=== PATIENT | female | born 1965 | race Caucasian/White ===

== ENCOUNTER 2017-10-21 05:55 | Emergency (ER) | payer OTHER, SELFPAY ==
[2017-10-21 05:56] VITALS: BP 161/120; PULSE 97; RESP 18; TEMP 36.8; O2SAT 98; BMI 40.1
[2017-10-21 06:16] VITALS: BP 122/71
[2017-10-21] MEDS: Loperamide 2 MG Capsule 4 MG PO (06:16)
[2017-10-21] MEDS: Dicyclomine 10 MG Capsule 20 MG PO (06:16)
--- NOTE | 2017-10-21 06:16 | ED.DCSUM_ITS ---
- ER Visit Summary Date of Service: 10/21/17 Chief Complaint: Burning lower abdominal pain with diarrhea and rectal bleeding History of Present Illness: The patient is a 52 F who presents with lower abdominal burning pain with diarrhea and rectal bleeding. Pain started several hours prior to presentation. She had several episodes of diarrhea without mucus. She now has blood. She has not eaten anything that tasted unusual. She has not been on antibiotics last month. There is no history of diverticulosis. There is no history of inflammatory bowel disorder. She is presently on no medication. She does report lightheadedness with standing. She denies dysuria, frequency, urgency or hematuria. Surgical history remarkable for C5-6 discectomy. Physical Examination: Patient's vital signs are remarkable and elevated blood pressure. She is not tachycardic or febrile. HEENT is grossly unremarkable. Lungs are clear to auscultation. Heart is regular. Abdomen is soft with bilateral lower quadrant abdominal pain. Bowel sounds are slightly increased. No inguinal lymphadenopathy. Rectal exam reveals external hemorrhoids which appear inflamed. On rectal exam minimal amount of blood noted. She did use the restroom which revealed blood. No stool was noted on rectal exam. Neuro exam is nonfocal. Test Results: Anoscopy was performed to determine if the bleeding was secondary to hemorrhoids versus lower GI bleed. Anoscopy was performed. There was no blood noted above the scope. The rectal mucosa appeared normal. There was evidence of more than one hemorrhoid that recently bled. There is no active bleeding. Hemorrhoids are not thrombosed. Emergency Department Course and Treatment: Since patient has bright red blood secondary to hemorrhoids no further testing is needed. She was treated with Imodium for her diarrhea and Bentyl for her pain. Treatment Plan: Imodium for diarrhea and prescription for Bentyl. Disposition: Discharged to home with appropriate home-going instructions Impression: 1. Diarrhea 2. Hematochezia secondary to external hemorrhoids This note was generated with [employer] dictation software. It may contain incorrect words, spelling, and punctuation that were not noted in review of the chart prior to signing ED Disposition - Plan for ED Patient: Disposition: Home or Assisted Living Chief Complaint: GI Bleed Instructions: ED Hematochezia Stable, ED Hemorrhoids Prescriptions: Dicyclomine HCl [Bentyl] 20 mg PO ACHS #10 cap Referrals: Malys,Tiffany, DO [Primary Care Provider] - 3-5 Days if not improving
== END 2017-10-21 06:21 | disposition home or self-care (01) ==
PROVIDERS: Emergency Provider Emergency Medicine; Family Provider Family Medicine; PCP Family Medicine
DX: R19.7 Diarrhea, unspecified (principal); K64.4 Residual hemorrhoidal skin tags; K92.1 Melena; R10.32 Left lower quadrant pain; R10.31 Right lower quadrant pain; R03.0 Elevated blood-pressure reading, without diagnosis of hypertension; E66.9 Obesity, unspecified; Z79.899 Other long term (current) drug therapy
CPT/HCPCS: 46600; 99283

== ENCOUNTER 2017-11-25 08:12 | Emergency (ER) | payer OTHER, SELFPAY ==
[2017-11-25] VITALS (10 sets, daily range): BP systolic 105–162; BP diastolic 58–96; PULSE 55–69; RESP 15–20; TEMP 36.6; O2SAT 97–100; BMI 34.9
--- NOTE | 2017-11-25 08:21 | EKG12_ITS ---
Test Reason : CP Blood Pressure : / mmHG Vent. Rate : 061 BPM Atrial Rate : 061 BPM P-R Int : 138 ms QRS Dur : 076 ms QT Int : 420 ms P-R-T Axes : 040 014 047 degrees QTc Int : 422 ms Normal sinus rhythm Normal ECG Confirmed by MONIKA BULLARD, KATHLEEN ([id number]), metropolitan editor RUI BORGES ([id number]) on 11/28/2017 1:23:06 PM Referred By: OXANA Confirmed By:KATHLEEN FRANK MD
--- NOTE | 2017-11-25 08:25 | ED.DCSUM_ITS ---
- ER Visit Summary Date of Service: 11/25/17 Chief Complaint: Chest pain History of Present Illness: The patient is a 52 F who presents with chest pain that began today while at work. Patient states the pain began approximately 3 hours ago. Patient states it feels like it is indigestion. Patient states she has been taking Tums with no relief. Patient denies any radiation of the pain. Patient states she did have some sweats today but also states she is going through menopause and occasionally gets sweats. Patient denies any nausea or vomiting. Patient denies any shortness of breath or palpitations. Patient denies any cardiac risk factors. Patient denies any PE risk factors. Physical Examination: Vital signs are stable except for mildly elevated blood pressure 162/96. Patient is afebrile. Patient is in no acute distress. Oral mucosa is pink and moist. Neck is supple. There is no JVD noted. Heart was regular rate and rhythm. Lungs are clear and equal bilateral. There is good respiratory effort noted. Abdomen is soft. Bowel sounds are normal. There is no tenderness noted. Cranial nerves II through XII are intact. There are no focal motor or sensory deficits noted. The remaining physical exam is within normal limits. Test Results: EKG showed normal sinus rhythm with a rate of 61. There are no acute ST or T-wave changes noted. CBC and basic metabolic profile were obtained. Potassium was slightly elevated at 5.5. The specimen was slightly hemolyzed. Troponin was normal. Emergency Department Course and Treatment: Patient was given aspirin and sublingual nitroglycerin here. Patient felt better on reevaluation. Patient has a FRANCI score of 1. Patient has a HEART score of 2. Patient was advised that this is low risk for acute cardiac event. Patient was instructed to follow -up with her primary care physician in 3-5 days. Patient understood and was agreeable with the plan. All questions were answered. Disposition: Discharge home Impression: Chest pain This note was generated with [employer] dictation software. It may contain incorrect words, spelling, and punctuation that were not noted in review of the chart prior to signing ED Disposition - Plan for ED Patient: Disposition: Home or Assisted Living Chief Complaint: Chest Pain Diagnosis: Chest pain Instructions: ED Chest Pain Atypical Unkn Cause Referrals: Tiffany Waite DO [Primary Care Provider] -
--- NOTE | 2017-11-25 08:27 | RAD_ITS ---
STUDY: X-RAY CHEST REASON FOR EXAM: Female, 52 years old. Chest pain. TECHNIQUE: Single AP portable view of the chest. COMPARISON: None. FINDINGS: EKG electrodes are seen. The lungs are clear and expanded. There is no demonstrated pleural abnormality. Normal size heart. Normal mediastinum and viktoriya. Normal visualized pulmonary arteries. Normal visualized aortic arch and descending thoracic aorta. Normal visualized thoracic spine. Prior fusion in the lower cervical spine. There is no demonstrated abnormality of the visualized soft tissue structures of the upper abdomen. RAD/Chest 1 View (Portable) IMPRESSION: No acute abnormality is seen. Electronically Signed: Ernesto Avalos MD at 8:43 EDT Tel [phone], Service support ,
[2017-11-25 08:55] LABS: Absolute Neutrophil Count 5.8 X10^3/uL (2.0-7.7); Basophil# 0.05 X10^3/uL; Basophil% 0.5 % (0-1); Eosinophil# 0.11 X10^3/uL; Eosinophils% 1.2 % (0-5); Hematocrit 44.3 % (37-47); Lymphocyte % 27.3 % (19-41); Mean Corp Hgb Conc 33.9 g/gl (32-36); Mean Corpuscular Hgb 29.9 pg (27.0-32.0); Mean Corpuscular Volume 88.2 fL (81-99); Mean Platelet Vol. 10.9 fl (6.2-12.0); Monocyte# 0.93 X10^3/uL; Monocyte% 9.8 % (0-10); Neutrophil # 5.81 X10^3/uL (2.7-7.7); Neutrophil % 61.1 % (47-70); POSITIVE COUNT NO; POSITIVE DIFFERENTIAL NO; POSITIVE MORPHOLOGY NO; Platelet Count 216 K/mm3 (150-450); RBC Distribution Width SD 45.1 fl (35.1-43.9); Red Blood Count 5.02 M/mm3 (4.2-5.4); White Blood Count 9.5 K/mm3 (4.4-11.0)
[2017-11-25 09:07] LABS: Anion Gap 9 (5-15); BUN 16 mg/dL (7-18); BUN/Creat Ratio 20.9 RATIO (10-20); Calcium,Total 9.7 mg/dL (8.5-10.1); Chloride 106 mmol/L (98-107); Creatinine, Serum 0.77 mg/dL (0.55-1.02); EST Glomerular Filtration Rate 84 mL/min (>60); Est Glom Filt Rate - Afr Amer 101 mL/min (>60); Estimated Creatinine Clearance 72.96 ml/min; Glucose 84 mg/dL (74-106); Potassium 5.5 mmol/L (3.5-5.1); Sodium Level 136 mmol/L (136-145)
[2017-11-25] MEDS: Aspirin 81 MG TAB.CHEW 324 MG PO (09:11)
--- NOTE | 2017-11-25 10:29 | EKG12_ITS ---
Test Reason : REPEAT Blood Pressure : / mmHG Vent. Rate : 055 BPM Atrial Rate : 055 BPM P-R Int : 144 ms QRS Dur : 076 ms QT Int : 464 ms P-R-T Axes : 034 017 038 degrees QTc Int : 443 ms Sinus bradycardia Low voltage QRS Nonspecific T wave abnormality Abnormal ECG Confirmed by MONIKA BULLARD, KATHLEEN ([id number]), editor index RUI BORGES ([id number]) on 11/28/2017 1:23:22 PM Referred By: SHERIF Confirmed By:KATHLEEN FRANK MD
[2017-11-25] MEDS: Ketorolac 30 MG/ML Syringe IV (11:47)
== END 2017-11-25 12:06 | disposition home or self-care (01) ==
PROVIDERS: Emergency Provider Emergency Medicine; Family Provider Family Medicine; PCP Family Medicine
DX: R07.9 Chest pain, unspecified (principal); E87.5 Hyperkalemia; R03.0 Elevated blood-pressure reading, without diagnosis of hypertension; K21.9 Gastro-esophageal reflux disease without esophagitis; N95.1 Menopausal and female climacteric states; Z79.899 Other long term (current) drug therapy; Z85.828 Personal history of other malignant neoplasm of skin
CPT/HCPCS: 36415; 71045; 80048; 84484; 85025; 93005; 96374; 99285; A4216

== ENCOUNTER → 2017-11-27 08:12 | Outpatient (CLI) | payer OTHER, SELFPAY ==
--- NOTE | 2017-11-27 08:17 | STE_ITS ---
Version 2 Reason For Study: Chest Pain Stress Results Protocol: Peña Protocol Maximum Predicted HR: 167 bpm Target HR: 142 bpm% Max imum Predicted HR: 93 % DurationHeart Rate Stage (mm:ss) (bpm) BPCom ment Baseline 76 132/74 No Chest Pain Peña Protocol Stage I 3:00 10 9 156/74No Chest Pain Peña Protocol Stage II 3:00 13 3 160/70No Chest Pain; Mild Dyspnea Peña Protocol Stage III 2:00 15 5 170/68No Chest Pain; Mild Dyspnea Recovery 85 128/70 No Chest Pain Stress Duration: 8:00 mm:ss Maximum Stress HR: 155 bpmM ETS: 10 Baseline Echocardiogram Findings Stress Echo Wall motion Data Resting WMIntermediate WMStress WM Resting Wall Motion Wall Motion Stress No regional wall motion No regional wall motion abnormalities noted. abnormalities noted. Ejection Fraction 55 %. Ejection Fraction 65 %. Stress Results Normal blood pressure response to exercise. Exercise was stopped due to fatigue. EKG Data Baseline ECG demonstrates normal sinus rhythm with a rate of 64 beats per minute. Normal intervals are noted. The resting blood pressure was 132/74. The patient exercised according to the regular Peña protocol for a total duration of 8 min. The maximum heart rate attained was 157 beats per minute. This was 94% of maximum predicted heart rate. The patient exercised into stage 3 of the Peña protocol. During stress, there were no ST or T wave changes noted to suggest ischemia. At peak exercise, upsloping ST changes only were noted, which did not meet the criteria for ischemia. The peak blood pressure was 170/68. No arrhythmias noted. No clinical angina was noted. Interpretation Summary Normal resting LV systolic function. Nonstenotic valves. With stress, the LV size decreased and all segments augmented normally. The LVEF increased from 55% to 65%. Negative for ischemia at 94% of MPHR and at 10.1 METS. Normal stress echo at a high workload. No angina noted Ordering Physician: Tiffany Waite Referring Physician: Chano Aviles MD Performed By: Nadine Ruiz ELICEO
== END ==
PROVIDERS: Family Provider Family Medicine; PCP Family Medicine; Visit Provider Family Medicine
DX: R07.9 Chest pain, unspecified (principal)
CPT/HCPCS: 93017; 93350

== ENCOUNTER → 2018-12-17 08:06 | Outpatient (CLI) | payer OTHER, SELFPAY ==
--- NOTE | 2018-12-17 08:06 | BI_ITS ---
MAMMOGRAPHY - BILATERAL SCREENING REASON FOR EXAM: Female, 53 years old. Routine annual screening examination. PERTINENT HISTORY: Non-contributory. TECHNIQUE: Digital bilateral breast syeda (3D mammographic acquisition) in the CC and MLO projections. 2-D mediolateral oblique (MLO) and craniocaudad (CC) views of both breasts were obtained. CAD: Full Field Digital Mammography with Computer Added Detection was performed. COMPARISON: Comparison is made with prior examination dated June 27, 2016 and July 12, 2014. FINDINGS: Breast Composition: There are scattered areas of fibroglandular density. There are no dominant masses or suspicious calcifications. Stable appearance of the small bilateral axillary lymph nodes. No other significant abnormalities are identified. There has been no significant change since the prior study. BI/SCREEN MAMM (CAD) W/SYEDA BILAT IMPRESSION: Stable bilateral screening mammogram. Yearly follow-up mammogram recommended. (A) ASSESSMENT CATEGORY: BIRADS Category 2: Benign. A letter regarding these results will be sent to the patient by the facility within 30 days. Approximately 10% of breast cancers are not detected by mammography. A normal mammogram should not delay biopsy of a clinically suspicious abnormality. [id number] Electronically Signed: Ernesto Avalos, at 9:24 EDT , Service support ,
== END ==
PROVIDERS: Family Provider Family Medicine; PCP Family Medicine; Referring Provider Obstetrics & Gynecology; Visit Provider Obstetrics & Gynecology
DX: Z12.31 Encounter for screening mammogram for malignant neoplasm of breast (principal)
CPT/HCPCS: 77063; 77067

== ENCOUNTER → 2018-12-28 17:00 | Outpatient (CLI) | payer OTHER, SELFPAY ==
[2018-12-31 14:18] LABS: HPV Reflexed? NOT INDICATED
== END ==
LOC: LABSPEC 17:00 → LAB 12-29 10:36
PROVIDERS: Family Provider Family Medicine; PCP Family Medicine; Referring Provider Obstetrics & Gynecology; Visit Provider Obstetrics & Gynecology
DX: Z12.4 Encounter for screening for malignant neoplasm of cervix (principal); Z97.5 Presence of (intrauterine) contraceptive device
CPT/HCPCS: 87624; 88175; G0145

== ENCOUNTER 2019-03-31 10:09 | Day surgery (SDC) | payer OTHER, SELFPAY ==
[2019-03-31 10:27] VITALS: BP 126/58; PULSE 74; RESP 15; TEMP 36.6; O2SAT 97; BMI 38.5
[2019-03-31] MEDS: Lactated Ringers 1,000 ML 100 ML IV (10:42)
--- NOTE | 2019-03-31 10:51 | HP.PCM_ITS ---
History of Present Illness Date of Admission: 03/31/19 The patient is a 53 year old F here for screening colonoscopy. The patient reports that she did have a colonoscopy back in her 30s. At that time he was induced that she had irritable bowel syndrome. She has had no polyps. She has no family history of colon cancer. She denies any abdominal pain or blood in her stool. Past Medical/Surgical History - Planned Operation Planned Operative Procedure/s: COLONOSCOPY Date of Operative Procedure: 03/31/19 Permit Signed: Yes S.O.S: No Is This Patient Having a Total Joint: No - Previous Hospitalizations/Surgeries HX Hospitalizations: No HX of Surgeries: GALLBLADDER. CYSTO. BASAL CELL ON NECK. C5-C6 NECK REPAIR 2015 Any Problems With Anesthesia: No You/Your Family Experience Fever (Hyperthermia) With Anes: No Cholinesterase deficiency: No - Cardiovascular Hx Chest Pain within Last 2 months: No Hx of Irregular Heartbeat and/or Afib: No Hx Heart Attack: No Hx Congestive Heart Failure: No Hx Rheumatic Fever: No Hx Hypertension: No Hx Internal Defibrillator: No Hx Pacemaker: No Hx Cardiac Catheterization: Yes - [facility] 2003 What facility was last heart cath performed: [facility] Date of last Heart Cath: 2003 Hx Cardiac Surgery/Stents/Etc.: No Hx Stress Test: Yes - STRESS TEST 11/2017 HX Edema: No Hx Pain in Legs when Walking/Leg Cramps: No - Respiratory Chronic Cough: No HX of Shortness of Breath: No Hoarseness: No Hx Chronic Obstructive Pulmonary Disease (COPD): No Hx Asthma: Yes - EPISODE X1-HOSPITALIZED, NOTHING SINCE Hx Emphysema: No Hx Sleep Apnea: No Hx Oxygen Use at Home: No Hx Respiratory Tract Infection/Cold (presently): No Do You Snore Loudly (louder than talking or can be heard): No Do You Often Feel Tired/ Fatigued/ Sleepy Dring Daytime?: No Has Anyone Observed You Stop Breathing During Sleep?: No Result (for STOP score): Negative Hx Smoking: No Smoking Status: Never smoker - Gastrointestinal Hx Gastroesophageal Reflux: Yes Controlled With Meds: Yes - ON MED PRN Hx Gastrointestinal Disorders: No Hx Gastrointestinal Bleed: No Hx Ulcer: No Hx Hiatal Hernia: No Difficulty Chewing/Swallowing: No Recent Onset of Swallowing Problems: No Special diet followed at home: No Hx Unplanned Weight Loss of 20#: No HX Unplanned Weight Gain of 20#: No - Neurological Hx Seizures: No HX Syncope/Blackout Spells/Unconsciousness: No Hx CVA/Stroke: No Hx Transient Ischemic Attacks (TIA): No Hx Multiple Sclerosis: No Hx Parkinson's Disease: No Hx Head/Neck Injury: Yes Hx Headaches: Yes Hx Back Injury/Pain: No Recent Onset of Speech Difficulty: No Restless Legs: No Does patient have nerve stimulator: No - Blood Disorder Hx Leukemia: No Bleeding Tendencies: No Hx Deep Vein Thrombosis: No Hx High Cholesterol: No Blood Transmitted Disease: No Hx Hepatitis: No Hx Cirrhosis: No Hx Anemia: No Hx Blood Disorders: No - Reproduction : No Is Patient Lactating: No Hx Hysterectomy: No Hx Tubal Ligation: No Are You Post Menopause: Yes - Genitourinary Hx Renal Disease: Yes - KIDNEY STONES Hx Dialysis: No - Musculoskeletal Hx Arthritis: No Hx Rheumatoid Arthritis: No Hx Gout: No Recent Onset of an Orthopedic Problem: No - Endocrine Hx Diabetes: No Thyroid Disease: No Hx Steroid Therapy: No - Psycho/Social Hx Substance Use: No Hx Alcohol Use: No Hx Anxiety: No Hx Depression: No Mental Illness: No Hx Dementia: No - Miscellaneous Hx Cancer: Yes - BASAL CELL ON NECK Recent Exposure to Contagious Disease: No Active MRSA: No Hx of C-Diff: No Any Loose Teeth: No Allergies Penicillins Allergy (Verified 03/31/19 10:20) Unknown - Discharge Is Pt Admitted From a Halfway, or a Half-Way: No Who Could Help: After D/C, Where Do you Plan to Go: Return Home - Physical Exam Vitals/I&O's: Vital Signs Temp Pulse Resp BP Pulse Ox 97.8 F 74 15 126/58 H 97 03/31/19 10:27 03/31/19 10:27 03/31/19 10:27 03/31/19 10:27 03/31/19 10:27 Oxygen Delivery Method Room Air Weight: 197 lb 8.547 oz Body Mass Index (BMI) 38.5 General: Alert, Oriented x3 Lungs: Normal air movement Cardiovascular: Regular rate, Regular Rhythm Abdomen: Soft, Non Tender, Non-Distended Current Medications Lactated Ringer's () 1,000 mls @ 100 mls/hr IV .Q10H FARIDA Last Admin: 03/31/19 10:42 Dose: 100 mls/hr Documented by: Assessment/Plan 53-year-old female for screening colon cancer I explained endoscopy in detail to the patient. I explained the risks including but not limited to stroke or heart attack with anesthesia, perforation of the GI tract, bleeding, infection. I explained that any of these could necessitate further emergency surgery. The patient understands and all questions were answered sufficiently. The patient wishes to proceed with procedure. Gautam Barkley MD Pager: [facility] [address] [place] [address] [address] [place] [address] Office: Surgery Risks - Colonoscopy Risks Include but are not Limited To: Risks include but are not limited to: Bleeding, perforation requiring further surgery, inability to complete colonoscopy requiring barium enema.
--- NOTE | 2019-03-31 11:38 | OP.COLON_ITS ---
Patient Name: Eva Mulligan Procedure Date: 03/31/2019 11:06 AM Date of : 1965 Age: 53 Procedure: Colonoscopy Indications: Screening for colorectal malignant neoplasm Providers: Gautam Barkley MD Referring MD: Gautam Barklye MD Medicines: Monitored Anesthesia Care Patient Profile: This is a 53 year old female. Refer to note in patient chart for documentation of history and physical. Last Colonoscopy: more than 10 years ago. Complications: No immediate complications. Procedure: Pre-Anesthesia Assessment: - Prior to the procedure, a History and Physical was performed, and patient medications and allergies were reviewed. The patient's tolerance of previous anesthesia was also reviewed. The risks and benefits of the procedure and the sedation options and risks were discussed with the patient. All questions were answered, and informed consent was obtained. Prior Anticoagulants: The patient has taken no previous anticoagulant or antiplatelet agents. After reviewing the risks and benefits, the patient was deemed in satisfactory condition to undergo the procedure. After I obtained informed consent, the scope was passed under direct vision. Throughout the procedure, the patient's blood pressure, pulse, and oxygen saturations were monitored continuously. The Colonoscope was introduced through the anus and advanced to the cecum, identified by appendiceal orifice and ileocecal valve. The colonoscopy was performed without difficulty. The patient tolerated the procedure well. The quality of the bowel preparation was good. Scope In: 11:23:24 AM Scope Withdrawal Time 0 hours 6 minutes 18 seconds Scope Out: 11:35:00 AM Total Procedure Duration Time 0 hours 11 minutes 36 seconds Findings: The entire examined colon appeared normal on direct and retroflexion views. Impression: - The entire examined colon is normal on direct and retroflexion views. - No specimens collected. Recommendation: - Discharge patient to home. - Resume previous diet. - Continue present medications. - Repeat colonoscopy in 10 years for screening purposes. Procedure Code(s): --- Professional --- 88355, PT, Colonoscopy, flexible; diagnostic, including collection of specimen(s) by brushing or washing, when performed (separate procedure) Diagnosis Code(s): --- Professional --- Z12.11, Encounter for screening for malignant neoplasm of colon CPT copyright 2017 [employer]. All rights reserved. The codes documented in this report are preliminary and upon vb net programmer review may be revised to meet current compliance requirements. Gautam Barkley MD 03/31/2019 11:37:34 AM This report has been signed electronically. Number of Addenda: 0 Note Initiated On: 03/31/2019 11:06 AM
[2019-03-31 11:43] VITALS: BP 126/58; BP 98/71; PULSE 62; RESP 16; TEMP 36.5; O2SAT 98
[2019-03-31 11:45] VITALS: BP 110/64; BP 126/58; PULSE 57; RESP 16; O2SAT 93
[2019-03-31 11:50] VITALS: BP 125/68; BP 126/58; PULSE 56; RESP 16; O2SAT 93
[2019-03-31 11:55] VITALS: BP 110/69; BP 126/58; PULSE 57; RESP 16; TEMP 36.2; O2SAT 100
[2019-03-31 12:05] VITALS: BP 126/58
== END 2019-03-31 12:27 | disposition home or self-care (01) ==
LOC: EN 10:10 → AC 10:12
PROVIDERS: Family Provider Family Medicine; PCP Family Medicine; Referring Provider Surgery; Visit Provider Surgery
PROC: 0DJD8ZZ Inspection of Lower Intestinal Tract, Via Natural or Artificial Opening Endoscopic (ICD-10-PCS; CPT 45378; principal; 2019-03-31 11:10)
DX: Z12.11 Encounter for screening for malignant neoplasm of colon (principal); K21.9 Gastro-esophageal reflux disease without esophagitis; J45.909 Unspecified asthma, uncomplicated; Z78.0 Asymptomatic menopausal state; Z88.0 Allergy status to penicillin; Z79.899 Other long term (current) drug therapy; Z87.442 Personal history of urinary calculi; Z85.828 Personal history of other malignant neoplasm of skin
CPT/HCPCS: 45378; J7120

== ENCOUNTER 2019-07-04 21:48 | Emergency (ER) | payer OTHER, SELFPAY ==
[2019-07-04 21:48] VITALS: BP 119/78; PULSE 74; RESP 16; TEMP 36.7; O2SAT 98; BMI 40.3
--- NOTE | 2019-07-04 21:54 | RAD_ITS ---
STUDY: X-RAY LEFT FOOT, TOE REASON FOR EXAM: Female, 53 years old. PATIENT FELL TONIGHT. PAIN IN LEFT GREAT TOE MOSTLY WITH SCRAPES ACROSS OTHER TOES. TECHNIQUE: 3 view(s) of the toe were obtained. COMPARISON: None. FINDINGS: Minimal irregularity at the distal aspect of the great toe may represent a subtle nondisplaced fracture. Mild degenerative changes at the left first MTP joint. No significant soft tissue swelling. IMPRESSION: Minimal irregularity at the distal aspect of the great toe may represent a subtle nondisplaced fracture. Electronically Signed: Brad Mayo, at 23:32 EST Tel , Service support , RAD/Toe(s) Min 2 Views
--- NOTE | 2019-07-04 22:04 | RAD_ITS ---
STUDY: X-RAY - RIGHT ANKLE REASON FOR EXAM: Female, 53 years old. PATIENT FELL TONIGHT. PAIN IN RIGHT ANKLE. TECHNIQUE: 3 view(s) of the ankle. COMPARISON: None. FINDINGS: No acute fracture, dislocation or osseous destruction. No significant joint space narrowing. No significant productive changes. Diffuse soft tissue swelling. IMPRESSION: No acute fracture or dislocation right ankle. Electronically Signed: Brad Mayo, at 23:27 EST Tel , Service support , RAD/Ankle min 3 Views
[2019-07-04 22:22] VITALS: RESP 16
--- NOTE | 2019-07-04 22:45 | ED.VIS.GEN ---
History of Present Illness Chief Complaint: Fall Informant: Patient Onset: Today Current Severity: Moderate Maximum Severity: Moderate Narrative: Patient presents after fall. Earlier today she was leaving a friend's house and turned to close the gate. She lost her balance and fell down approximately 6 concrete steps. Primary complaint is pain to the right ankle into the toes of her left foot. She already took Aleve prior to arrival. - Past Medical History (1) GERD (gastroesophageal reflux disease) Status: Chronic (2) Kidney stone Status: Chronic (3) Hx of cholecystectomy Status: Chronic Past Medical History - Allergies and Home Meds Allergies/Adverse Reactions: Allergies Penicillins Allergy (Verified 07/04/19 21:52) Unknown Primary Care Physician: Tiffany Waite DO [Primary Care Provider] - 1 Week if not improving Prior records reviewed: Yes Surgical History: noncontributory Smoking Status: Never smoker Review of Systems General: Denies: Chills, Fever Eyes: Denies: Visual changes - bilaterally ENT: Denies: Bilateral ear pain Cardiovascular: Denies: Chest pain Respiratory: Denies: Dyspnea, Cough Gastrointestinal: Denies: Abdominal pain, Nausea, Vomiting Musculoskeletal: Reports: Swelling, Extremity Pain Skin: Reports: Abrasions Neurological: Denies: Headache Allergy: Denies: Uticaria Physical Exam Vital Signs/Narrative: Vital Signs Temp Pulse Resp BP Pulse Ox 07/04/19 22:22 16 07/04/19 21:48 98.1 F 74 16 119/78 98 Inital Vital Signs reviewed: Yes General: Well nourished, Well developed Head: Normocephalic ENT: Moist mucous membranes Neck: Supple Cardiovascular: Regular rate, Regular rhythm Respiratory: No distress, CTA bilaterally Abdomen: Soft, Nontender Back: Nontender Extremities: - - Tender to palpation around the right ankle, worse along the lateral malleolus. Abrasion noted over the anterior ankle. No tenderness over the midfoot or toes on the right. Left lower extremity reveals abrasions to her toes with tenderness, worse in the great toe. No significant ecchymosis. No tenderness over the heel or midfoot. Skin: - - Abrasions as above. She also has a large area of ecchymosis to the right volar forearm without bony tenderness. Neurological: Alert, Oriented x3, Normal Strength, Normal Sensation Psychological: Normal affect Diagnostic/Tx/Re-eval Impressions Toe X-Ray 07/04/19 21:54 IMPRESSION: Minimal irregularity at the distal aspect of the great toe may represent a subtle nondisplaced fracture. Ankle X-Ray 07/04/19 22:04 IMPRESSION: No acute fracture or dislocation right ankle. 07/04/19 21:54 Xray Toe [Toe(s) Min 2 Views] [RAD] Stat 07/04/19 22:04 XRAY Ankle [Ankle min 3 Views] [RAD] Stat - Medical Decision Making Patient taken Aleve prior to arrival. Patient was seen and evaluated prior to the return to the official x-ray read. My review of imaging I do not appreciate any fractures. Radiologist states there may be a subtle nondisplaced fracture to the distal left great toe, however this does not change management facilitator. Patient will continue Aleve at home as needed. Ashish wraps are applied. ED Disposition - Plan for ED Patient: Disposition: Home or Assisted Living Diagnosis: Ankle sprain, Foot contusion Instructions: Sprain, Ankle, with X-Ray, CONTUSION, Foot Referrals: Tiffany Waite DO [Primary Care Provider] - 1 Week if not improving
[2019-07-04 23:17] VITALS: RESP 14
== END 2019-07-04 23:17 | disposition home or self-care (01) ==
LOC: ED 22:59
PROVIDERS: Emergency Provider Emergency Medicine; PCP Family Medicine
DX: S93.401A Sprain of unspecified ligament of right ankle, initial encounter (principal); S90.412A Abrasion, left great toe, initial encounter; S90.415A Abrasion, left lesser toe(s), initial encounter; W10.8XXA Fall (on) (from) other stairs and steps, initial encounter; Y93.89 Activity, other specified; Y92.019 Unspecified place in single-family (private) house as the place of occurrence of the external cause; K21.9 Gastro-esophageal reflux disease without esophagitis
CPT/HCPCS: 73610; 73660; 99282

== ENCOUNTER → 2019-07-26 15:32 | Outpatient (CLI) | payer OTHER, SELFPAY ==
[2019-07-04 21:48] VITALS: BMI 40.3
--- NOTE | 2019-07-26 15:36 | RAD_ITS ---
STUDY: X-RAY - RIGHT FOOT CLINICAL: Female, 53 years old. fell 3 weeks ago, pain 5th digit and along the lateral side of foot TECHNIQUE: 3 view(s) of the foot. COMPARISON: None. FINDINGS: Normal talus, calcaneus, and tarsal bones. Normal visualized subtalar, talonavicular, calcaneocuboid, tarsal and tarsometatarsal articulations. Normal metatarsi. There is minimal degenerative arthrosis of the metatarsophalangeal joint of the hallux . Normal tibial and fibular sesamoid bones. Normal interphalangeal joint of the great toe. Normal phalanges of the great toe. Mild irregularity of the medial aspect of the fifth metatarsophalangeal joint of the base of the proximal phalanx medially which could represent sequela of an old avulsion injury. Otherwise unremarkable second through fifth metatarsophalangeal joints. Normal interphalangeal joints and phalanges of the lesser toes. There is soft tissue swelling along the dorsum of the foot at the metatarsophalangeal joints and best seen on lateral projection. RAD/Foot min 3 Views IMPRESSION: Cannot exclude avulsion injury or subtle fracture involving the medial aspect of the base of the proximal phalanx of the fifth toe Metatarsophalangeal joint, correlation with physical exam recommended. Associated soft tissue swelling seen. Electronically Signed: Kirsten Pritchett MD at 4:20 EDT , Service support ,
== END ==
PROVIDERS: PCP Family Medicine; Referring Provider Family Medicine; Visit Provider Family Medicine
DX: S99.921A Unspecified injury of right foot, initial encounter (principal); W19.XXXA Unspecified fall, initial encounter
CPT/HCPCS: 73630

== ENCOUNTER → 2019-08-06 06:34 | Outpatient (CLI) | payer OTHER, SELFPAY ==
--- NOTE | 2019-08-06 06:43 | MRI_ITS ---
STUDY: MRI RIGHT FOOT REASON FOR EXAM: Right foot and ankle pain after a fall approximately 4 weeks ago, evaluate for fifth metatarsal fracture. TECHNIQUE: Standardized fat and water weighted pulse sequences were obtained in all 3 orthogonal planes. COMPARISON: Radiographs 07/26/2019. FINDINGS: Normal talonavicular articulation. There is a mild bone contusion of the lateral aspect of the navicular (inversion recovery sagittal image 14). Normal calcaneocuboid articulation. There is mild bone contusion of the proximal cuboid (inversion recovery sagittal images 15, 16). Normal navicular-cuneiform articulations. Normal intercuneiform articulations. Normal first tarsometatarsal articulation. There is mild interstitial edema in Lisfranc ligament (T2 series 3 image 12) suggestive of a low-grade sprain. Normal second and third tarsometatarsal articulations. There is very mild subchondral bone edema adjacent to the third tarsometatarsal joint (inversion recovery sagittal image 16). Normal cuboid fourth and cuboid fifth tarsometatarsal articulation. There is a mild bone contusion of the base of the fourth metatarsal (inversion recovery sagittal image 18). There is a bone contusion of the head and diaphysis of the fifth metatarsal (inversion recovery sagittal images 22-24). There is a mild bone contusion of the base of the fifth proximal phalanx (inversion recovery sagittal image 24) without demonstrated macrofracture. There is calcification in the medial joint capsule of the fifth proximal interphalangeal joint (T2 series 3 image 13). Otherwise, unremarkable phalanges. There is mild arthrosis with mild chondral thinning of the first metatarsophalangeal joint (T1 sagittal image 5). There is patchy bone edema in the bipartite tibial sesamoid (inversion recovery sagittal image 5) suggestive of sesamoiditis. There is atrophy with partial fat replacement of the abductor digiti minimi muscle (T1 sagittal images 21, 22). There is edema in the dorsal and lateral subcutis adipose space. MRI/Lower Ext/No Jt/w/o IMPRESSION: Bone contusion of the fifth metatarsal. Mild bone contusion of the base of the fifth proximal phalanx and calcification in the medial capsule of the fifth proximal interphalangeal joint. Mild bone contusions of the lateral navicular, proximal cuboid, adjacent to the third tarsometatarsal joint, and fourth metatarsal base. Low-grade sprain of Lisfranc ligament. Mild arthrosis of the first metatarsophalangeal joint. Tibial sesamoiditis. Atrophy of the abductor digiti minimi muscle. Electronically Signed: Greg Moody MD at 9:28 EDT Tel , Service support ,
--- NOTE | 2019-08-06 06:43 | MRI_ITS ---
STUDY: MRI RIGHT ANKLE WITHOUT CONTRAST REASON FOR EXAM: Ankle pain, fall 4 weeks ago. TECHNIQUE: Standardized fat and water weighted pulse sequences were obtained in all 3 orthogonal planes. COMPARISON: Radiographs 08/06/2019. FINDINGS: There is mild edema in the lateral subcutis adipose space. There is a very small volume of fluid in the retromalleolar and submalleolar posterior tibialis tendon sheath (T2 axial images 7, 8, 13, 14). The posterior tibialis tendon is morphologically normal. Normal flexor digitorum longus tendon. There is fluid in the flexor hallucis longus tendon sheath proximal and distal to the sustentaculum esdras (inversion recovery sagittal images 13-15). There is a very small volume of fluid in the perimalleolar peroneal tendon sheath (inversion recovery sagittal image 5). The peroneus longus and brevis tendons are morphologically normal. Normal tibialis anterior tendon. Normal extensor hallucis longus tendon. There is a small volume of fluid in the extensor digitorum longus tendon sheath (T2 axial images 9-11). The extensor digitorum longus tendons are morphologically normal. Normal Achilles tendon and teno-osseous insertion. There is mild thickening of the central cord of the plantar fascia without interstitial edema (inversion recovery sagittal image 14) consistent with chronic plantar fasciitis. Normal plantar calcaneal tubercles. There is atrophy with partial fat replacement of the abductor digiti minimi muscle (T1 sagittal images 6, 7). Normal distal tibiofibular syndesmotic ligamentous complex. There is a partial tear with attenuation of the anterior talofibular ligament (inversion recovery axial oblique series 10 image 9). Normal calcaneofibular and posterior talofibular ligaments. Normal subtalar ligaments and sinus tarsi. Normal deltoid ligamentous complexes. Normal plantar calcaneonavicular (spring) ligament. Normal tibiotalar articulation. Normal talar dome. Normal subtalar articulations. There is mild bone edema in the superior aspect of the posterior tuberosity of the calcaneus (inversion recovery sagittal images 8-11). Normal talonavicular articulation. There is mild bone edema in the lateral navicular (inversion recovery sagittal image 13). Normal calcaneocuboid articulation. There is mild subchondral bone edema in the proximal cuboid (inversion recovery sagittal images 11, 12). Normal navicular-cuneiform articulations. MRI/Lower Ext Joint Only (Routine) IMPRESSION: Partial tear of the anterior talofibular ligament. Mild bone contusions of the proximal cuboid, lateral navicular and posterior tuberosity of the calcaneus. Extensor digitorum longus tenosynovitis. Very mild peroneal tenosynovitis. Very mild posterior tibialis tenosynovitis. Fluid in the flexor hallucis longus tendon sheath. Chronic plantar fasciitis. Atrophy of the abductor digiti minimi muscle. Electronically Signed: Greg Moody MD at 9:29 EDT Tel , Service support ,
== END ==
PROVIDERS: PCP Family Medicine; Referring Provider Podiatrist; Visit Provider Podiatrist
DX: S92.354A Nondisplaced fracture of fifth metatarsal bone, right foot, initial encounter for closed fracture (principal); S93.401A Sprain of unspecified ligament of right ankle, initial encounter; S90.31XA Contusion of right foot, initial encounter; S90.01XA Contusion of right ankle, initial encounter
CPT/HCPCS: 73718; 73721

== ENCOUNTER 2019-10-13 15:30 | Outpatient (RCR) | payer OTHER, SELFPAY ==
--- NOTE | 2019-09-06 10:57 | HP.PTEVAL_ITS ---
Patient's Visit Information RONNIE SOLIMAN is a 53 year old F referred to Physical Therapy by Sammy Hirsch DPM with a diagnosis of R ATFL tear, ankle sprain, peroneal tendonitis, 5th toe fracture.. Date of Evaluation: 09/06/19 Physical Therapist: Hamilton Fabian DPT, OCS, CSCS - Visit Plan Frequency: 3x /Week Duration: 4-6 Weeks Plan: 3x/week for 3-4 weeks for. manual PROM and mobs to R ankle and progress aROM HEP. strength R ankle. walk through weaning boot at home one hour per day starting today as pain and swelling permit. ice, ES if needed. Return to function and outdoor walking as needed. - Subjective Subjective: Fell Jul 04 down a flight of cement stairs with slippers on. Fell because came out of slippers not a balance issue.. Lost footing. NWB with avulsion fracture x 6 weeks and ligamnet tear laterally and sprain medially after rolling ankle. Used knee scooter. In boot walking for 3 weeks. Now can start one hour a day with shoe. Has ankle brace to wear. 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 8 hours shifts at possible. At rest she has 2/10 pain top of foot and side of foot and ankle, much improved compared not sleeping early on. Sleeps ok now unless rolls on it. Pain to 4/10 if on it too much but not bad. Basic ADLS getting done in boot at home without too much worsening of pain. Needs to get back to large flower beds comfortably. Steps at home and doing them in boot currently. Slep downstairs for a long time when NWB. - Pain R ankle Pain Intensity (Out of 10): 2 Pain Intensity Range: 2, 4 - Objective Enters with boot on and boot limp on R. Don and doffs I. L ankle hip and knee WFL and normal. R knee adn hip 4/5 strength and WFL ROM. R ankle arom 0 inv, 12 eversion, 0 DF, 34 PF, PROM PF to 40 and DF to 2 and inversion to 10 and eversion to 13. Has firm endfeel and difficulty with motor control inversionw anting to move hip. R mark 3+/5 strength. Metatarsals move well B, Toes R flexion and ext weak at 4- vs 4 on L. little toe hurts to palpation and resisted flexiona dn extension. Walks in shoe 200 feet today withobvious R a ntalgia. Steps difficult descending using R due to ROM limitations, ascending requires rail. Donned brace with assist prior to departure. R SLS 2 seconds adn L 15 seconds. - Balance Scores Functional Gait Assessment Score: 26 % Disability: 13.3400 - Goals Goal 1:: Full aROM R ankle and contraction strength at 4/5 without pain Goal Time Frame: 4-6 Weeks Goal 2:: Walk and steps without rail without antalgia Goal Time Frame: 4-6 Weeks Goal 3:: Walk on uneven surfaces with brace I without pain. Goal Time Frame: 4-6 Weeks Goal 4:: Back to work without increased pain Goal Time Frame: 4-6 Weeks Goal 5:: I approp HEP to minimize future problems. Goal Time Frame: 4-6 Weeks - Rehabilitation Potential Physical Therapy Diagnosis: R ankle sprain and 5th toe fracture. Rehabilitation Potential: Fair - Anticipated Interventions Patient/Client Instruction: Educate patient on: Condition, Plan of Care For the Purpose of:: To decrease pain, To increase ROM, To improve muscle performance and motor function, To improve ability of physical actions for home/community/work/leisure Therapeutic Exercise to Include: Strength training, Flexibilty training, Gait and locomotor training, Neuromotor development, Passive ROM, Active ROM For the Purpose of:: To decrease pain, To improve muscle performance and motor function, To increase tolerance to activity/condition/position, To improve ability of physical actions for home/community/work/leisure, To improve gait and locomotor functions Manual Therapy Techniques to Include: Mobilization, Passive ROM, Soft tissue mobilization For the Purpose of:: To decrease pain, To increase ROM, To increase tolerance to activity/condition/position TENS: Yes Cryotherapy (ice pack, ice massage): Yes For the Purpose of:: To decrease pain Thank you for the opportunity to evaluate your patient. For Medicare and Medicare HMO plans, please review the plan of care and approve it. It will need to be FAXED BACK to us at [phone] for Medicare purposes. For Medicare only, by signing this I certify the plan of care. Please let me know if there are questions or concerns regarding this plan of care. Physician Signature: Date:
--- NOTE | 2019-09-28 16:03 | HP.PTREVAL ---
Dr. Sammy Hirsch, DPM, It has been my pleasure to treat RONNIE SOLIMAN over the last 10 visits for R ATFL tear, ankle sprain, peroneal tendonitis, 5th toe fracture.. Please see the progress note below for an update on the physical therapy plan of care! Subjective: Doing well. 75% better, 100 may take 6 months according to doctor. Was outside a lot and gets pain if on it too much on uneven surfaces. Ices at night. Pain in evening is 5/10. Not bad in am 2/10. Sitting is very comfortable. Sleepign is OK. Doing gardening adn cooking and cleaning at home. Not on regualr ex at home outside of ankle. Will return to work Friday. Thinks will be OK without more therapy. Sees doctor Joycelyn Objective/Function: IOnversion AROM still limited adn PROM painful, eversion and DF aare good at 3 degrees DF, PF is full passively. Weakness persists in PF but is improving as she is able to heel raise with slight assist. Walking still shows some premature R knee flexiona t end of stance to avoid push off but improving. She is a little hesitant in confidence of tolerating work whcih she has not returned to more than one day but expectations are some increased discomfort and will need to manage it at home with ice adn REST. Plan Plan: f/u two weeks to check inversion ROM, PF strength, gait,a dn tolerance to work. Check steps adn outdoor walking. Pt to call prior if problems. To doctor tomorrow. Goals Goal 1:: Full aROM R ankle and contraction strength at 4/5 without pain Goal Time Frame: 4-6 Weeks Goal Progress: Progressing Goal 2:: Walk and steps without rail without antalgia Goal Time Frame: 4-6 Weeks Goal Progress: Progressing Goal 3:: Walk on uneven surfaces with brace I without pain. Goal Time Frame: 4-6 Weeks Goal Progress: Progressing Goal 4:: Back to work without increased pain Goal Time Frame: 4-6 Weeks Goal Progress: to be seen Goal 5:: I approp HEP to minimize future problems. Goal Time Frame: 4-6 Weeks Goal Progress: Goal Met Anticipated Interventions Patient/Client Instruction: Educate patient on: Condition, Plan of Care For the Purpose of:: To decrease pain, To increase ROM, To improve muscle performance and motor function, To improve ability of physical actions for home/community/work/leisure Therapeutic Exercise to Include: Strength training, Flexibilty training, Gait and locomotor training, Neuromotor development, Passive ROM, Active ROM For the Purpose of:: To decrease pain, To improve muscle performance and motor function, To increase tolerance to activity/condition/position, To improve ability of physical actions for home/community/work/leisure, To improve gait and locomotor functions Manual Therapy Techniques to Include: Mobilization, Passive ROM, Soft tissue mobilization For the Purpose of:: To decrease pain, To increase ROM, To increase tolerance to activity/condition/position TENS: Yes Cryotherapy (ice pack, ice massage): Yes For the Purpose of:: To decrease pain Please do not hesitate to contact me at [phone] by phone or if you have questions or concerns regarding this new plan of care! Sincerely, Hamilton Fabian, DPT, OCS, CSCS
--- NOTE | 2019-10-13 15:59 | HP.PTDCSUM_ITS ---
It has been my pleasure to treat RONNIE SOLIMAN referred by Dr. Sammy Hirsch, SAVANNA, with the diagnosis of R ATFL tear, ankle sprain, peroneal tendonitis, 5th toe fracture. for a total of 11 visit(s). Discharge Date: 10/13/19 Please see the following information for a summary of their discharge status. Subjective: 07/19 after twelve hour shift. Sleeps Ok and then is fine. Activities pretty normal. Still doing flower beds and going to [employer] with out issues. Still has not done 2 shifts in a row. Feels stronger. Doesn't limp early in the day but will after on feet for a while. Done with doctor. Doctor said doing well. in brace until November then can wean out. R ankle Pain Intensity (Out of 10): 0 % Improvement: 80 Objective/Function: Inversion 27 degrees, 15 degrees eversion, PF/DF is normal. Strength is 4 in PF and 4+ in other motions. Steps tend sideways when WB with R but can correct with cues. Jogs 20 feet today without much pain gently with brace on. Pt getting stronger in PF and more ROM inv and doing better. Ready to be on her own with HEP and husbands help Goal 1:: Full aROM R ankle and contraction strength at 4/5 without pain Goal Progress: Goal Met Goal 2:: Walk and steps without rail without antalgia Goal Progress: Progressing Goal 3:: Walk on uneven surfaces with brace I without pain. Goal Progress: Goal Met Goal 4:: Back to work without increased pain Goal Progress: Progressing Goal 5:: I approp HEP to minimize future problems. Goal Progress: Goal Met Plan: d/c If there are questions or concerns regarding this patient's physical therapy, please feel free to call me at [phone]. Thank you for the referral of this patient. Sincerely, Hamilton Fabian, DPT, OCS, CSCS
== END 2019-10-13 19:00 | disposition home or self-care (01) ==
LOC: PT 15:30
PROVIDERS: PCP Family Medicine; Referring Provider Podiatrist; Visit Provider Podiatrist
DX: S93.601D Unspecified sprain of right foot, subsequent encounter (principal); M77.9 Enthesopathy, unspecified; S90.31XD Contusion of right foot, subsequent encounter
CPT/HCPCS: 97014; 97110; 97140; 97162; 97164; 97530; G0283

== ENCOUNTER → 2019-12-20 12:46 | Outpatient (CLI) | payer OTHER, SELFPAY ==
--- NOTE | 2019-12-20 12:49 | BI_ITS ---
MAMMOGRAPHY - BILATERAL SCREENING REASON FOR EXAM: Female, 54 years old. Routine annual screening examination. PERTINENT HISTORY: Non-contributory. History of bilateral breast discharge. TECHNIQUE: Digital bilateral breast syeda (3D mammographic acquisition) in the CC and MLO projections. 2-D mediolateral oblique (MLO) and craniocaudad (CC) views of both breasts were obtained. CAD: Full Field Digital Mammography with Computer Added Detection was performed. COMPARISON: Comparison is made with prior study dated 12/17/2018 and 06/27/2016. FINDINGS: Breast Composition: There are scattered areas of fibroglandular density. There are no dominant masses or suspicious calcifications. Stable small benign appearing bilateral axillary lymph nodes. No other significant abnormalities are identified. There has been no significant change since the prior study. BI/SCREEN MAMM (CAD) W/SYEDA BILAT IMPRESSION: Stable bilateral screening mammogram. Yearly follow-up mammogram recommended. (A) ASSESSMENT CATEGORY: BIRADS Category 2: Benign. A letter regarding these results will be sent to the patient by the facility within 30 days. Approximately 10% of breast cancers are not detected by mammography. A normal mammogram should not delay biopsy of a clinically suspicious abnormality. [id number] Electronically Signed: Ernesto Avalos, at 14:05 EDT , Service support ,
== END ==
PROVIDERS: PCP Family Medicine; Referring Provider Obstetrics & Gynecology; Visit Provider Obstetrics & Gynecology
DX: Z12.31 Encounter for screening mammogram for malignant neoplasm of breast (principal)
CPT/HCPCS: 77063; 77067

== ENCOUNTER → 2020-01-06 | Outpatient (CLI) | payer OTHER, SELFPAY ==
[2020-01-11 04:50] LABS: HPV Reflexed? NOT INDICATED
== END | disposition home or self-care (01) ==
LOC: LABSPEC 10:10
PROVIDERS: PCP Family Medicine; Visit Provider Obstetrics & Gynecology
DX: Z12.4 Encounter for screening for malignant neoplasm of cervix (principal)
CPT/HCPCS: 88175; G0145

== ENCOUNTER 2021-11-02 00:10 | Emergency (ER) | payer OTHER, SELFPAY ==
[2021-11-02] VITALS (7 sets, daily range): BP systolic 119–163; BP diastolic 60–118; PULSE 54–67; RESP 16–18; TEMP 36.2; O2SAT 93–98; BMI 38.6
--- NOTE | 2021-11-02 00:41 | RAD_ITS ---
EXAM: XR CHEST, 2 VIEWS CLINICAL INDICATION: chest pain TECHNIQUE: Frontal and lateral views of the chest. This report was created using [employer] report generation technology. COMPARISON: 11/25/2017 FINDINGS: LUNGS AND PLEURAL SPACES: Low lung volumes limit the exam. No consolidations. No pneumothorax. No effusion. HEART: Unremarkable. Cardiac silhouette not enlarged. MEDIASTINUM: Central airways and mediastinal contour are unremarkable. BONES/JOINTS: Unremarkable. SOFT TISSUES: Unremarkable. RAD/Chest PA and Lateral IMPRESSION: 1. Low lung volumes limit the exam. No consolidations. 2. No acute cardiopulmonary abnormality. Electronically Signed: Noel Tyler MD at 1:25 EDT ,
--- NOTE | 2021-11-02 00:41 | EKG12_ITS ---
Test Reason : CP Blood Pressure : / mmHG Vent. Rate : 064 BPM Atrial Rate : 064 BPM P-R Int : 148 ms QRS Dur : 074 ms QT Int : 432 ms P-R-T Axes : 026 000 028 degrees QTc Int : 445 ms Normal sinus rhythm Normal ECG Confirmed by ZACH BULLARD, NIKKI ([id number]), photographic editor JESSICA GAVIN ([id number]) on 11/06/2021 8:00:29 AM Referred By: GENEVA Confirmed By:NIKKI SERRANO MD
[2021-11-02 00:49] LABS: Absolute Lymphocyte Count 2.98 X10^3/uL (0.83-4.51); Absolute Neutrophil Count 3.7 X10^3/uL (2.0-7.7); Basophil# 0.06 X10^3/uL; Basophil% 0.8 % (0-1); Eosinophil# 0.26 X10^3/uL; Eosinophils% 3.4 % (0-5); Hematocrit 44.7 % (37-47); Hemoglobin 14.6 g/dL (12.0-15.0); Lymphocyte # 2.98 X10^3/ul (0.83-4.51); Lymphocyte % 38.4 % (19-41); Mean Corp Hgb Conc 32.7 g/dL (32-36); Mean Corpuscular Hgb 29.3 pg (27.0-32.0); Mean Corpuscular Volume 89.8 fL (81-99); Mean Platelet Vol. 11.5 fl (6.2-12.0); Monocyte# 0.75 X10^3/uL; Monocyte% 9.7 % (0-10); NRBC Flagged by Analyzer 0 % (0-5); Neutrophil # 3.69 X10^3/uL (2.7-7.7); Neutrophil % 47.4 % (47-70); Platelet Count 242 K/mm3 (150-450); RBC Distribution Width CV 14.3 % (11.6-14.6); RBC Distribution Width SD 46.8 fl (35.1-43.9); Red Blood Count 4.98 M/mm3 (4.2-5.4); White Blood Count 7.8 K/mm3 (4.4-11.0)
[2021-11-02] MEDS: 0.9% Normal Saline 1,000 ML 999 ML IV (00:56)
[2021-11-02] MEDS: Nitroglycerin SL (ED/IMG/CATH) 0.4 MG TABLET SL ×3 (00:56→01:06)
[2021-11-02] MEDS: Aspirin 325 MG Tablet PO (00:56)
[2021-11-02 01:18] LABS: Anion Gap 7 (5-15); BUN 13 mg/dL (7-18); BUN/Creat Ratio 16.1 RATIO (10-20); Calcium,Total 9.4 mg/dL (8.5-10.1); Chloride 108 mmol/L (98-107); EST Glomerular Filtration Rate 78 mL/min (>60); Est Glom Filt Rate - Afr Amer 94 mL/min (>60); Estimated Creatinine Clearance 58.55 ml/min; Glucose 99 mg/dL (74-106); Potassium 3.7 mmol/L (3.5-5.1); Sodium Level 141 mmol/L (136-145); Troponin-I HS 4 pg/mL (3.0-54.0)
[2021-11-02] MEDS: Mag Hydrox/Al Hydrox/Simeth 30 ML UDC PO (02:45)
[2021-11-02 02:47] LABS: Troponin-I HS 6 pg/mL (3.0-54.0)
--- NOTE | 2021-11-02 03:16 | CT_ITS ---
EXAM: CT ANGIOGRAPHY CHEST, ABDOMEN AND PELVIS WITH INTRAVENOUS CONTRAST CLINICAL INDICATION: chest pain TECHNIQUE: Helically acquired angiography images were obtained of the chest, abdomen and pelvis with intravenous contrast. This CT exam was performed using one or more of the following dose reduction techniques: automated exposure control, adjustment of the mA and/or kV according to patient size, and/or use of iterative reconstruction technique. This report was created using [employer] report generation technology. MIP reconstructed images were created and reviewed. CONTRAST: 100 cc of Isovue-370 IV. RADIATION DOSE: CTDIvol = 22.18 mGy, DLP = 1935.79 mGy-cm. COMPARISON: None. FINDINGS: VASCULATURE: AORTA: No acute findings. Normal in caliber. No dissection. PULMONARY ARTERIES: Unremarkable. Normal in caliber. No obvious central pulmonary embolism although this study was not performed with the pulmonary embolism protocol. GREAT VESSELS OF AORTIC ARCH: Unremarkable. Normal in caliber. No dissection. CELIAC TRUNK AND MESENTERIC ARTERIES: No acute findings. No occlusion or significant stenosis. No dissection. RENAL ARTERIES: No acute findings. No occlusion or significant stenosis. No dissection. ILIAC ARTERIES: No acute findings. No occlusion or significant stenosis. No dissection. CHEST: LUNGS AND PLEURAL SPACES: Unremarkable. No mass. No consolidation or edema. No pleural effusion or thickening. No pneumothorax. HEART: Unremarkable. Heart size is normal. No pericardial effusion. MEDIASTINUM: Unremarkable. No mediastinal or hilar adenopathy. Esophagus is unremarkable. No hiatal hernia. THYROID: Unremarkable. No thyroid lesions. ABDOMEN: LIVER: Unremarkable. Homogeneous. No focal mass. GALLBLADDER AND BILE DUCTS: Cholecystectomy. The common bile duct is dilated to 10 mm. PANCREAS: Unremarkable. No focal cystic or solid mass. SPLEEN: Unremarkable. Normal size without focal cystic or solid mass. ADRENALS: Unremarkable. No nodules. KIDNEYS AND URETERS: Unremarkable. Normal renal size and position. No hydronephrosis. STOMACH AND BOWEL: Unremarkable. No stomach or bowel distention. No focal inflammatory change. PELVIS: APPENDIX: No evidence of acute appendicitis. BLADDER: Unremarkable. REPRODUCTIVE: Unremarkable as visualized. No mass. CHEST, ABDOMEN and PELVIS: INTRAPERITONEAL SPACE: Unremarkable. No ascites or other fluid collection. No free air. BONES/JOINTS: Unremarkable. No suspicious lytic or blastic abnormality. SOFT TISSUES: Unremarkable. No discrete abdominal or pelvic wall hernia. LYMPH NODES: Unremarkable. No enlarged lymph nodes. CT/CTA Chst, Abd, Pel W and/or WO IMPRESSION: 1. No vascular abnormalities. 2. No acute cardiothoracic or abdominopelvic abnormalities. 3. Cholecystectomy. 4. The common bile duct is dilated to 10 mm. This is likely chronic as cholecystectomy. Correlate with laboratory values. Electronically Signed: Noel Tyler MD at 4:20 EDT ,
[2021-11-02 05:02] LABS: Troponin-I HS 5 pg/mL (3.0-54.0)
--- NOTE | 2021-11-02 05:10 | EDS_ITS ---
HPI History of Present Illness Chief Complaint: Chest Pain Narrative Narrative: Patient 56-year-old female who states that she noticed some midsternal chest pain on Friday that was described as a burning sensation. She states she does have a history of GERD and it felt similar nature to this. She states that she took her normal medication which she typically does to control GERD and it seemed improved. She states symptoms returned on Friday and this time were slightly more severe but still resolved with treatment. She states the pain came back she took the same medication without symptom resolution and she felt like there was some pain radiating to her back. With concern this could be cardiac and not GI she presents for evaluation. [facility] Medical History (Updated 11/02/21 @ 05:[address] Efren Verduzco, ) Cholecystectomy planned Kidney calculi Home Medications NK 11/02/21 [History Last Taken Unknown] Allergy/AdvReac Type Severity Reaction Status Date / Time Penicillins Allergy Unknown Verified 11/02/21 00:17 Surgical History (Updated 11/02/21 @ 00:16 by Dilia Corbett) History of neck surgery Social History (Updated 06/08/20 @ 09:41 by Ray NIEVES, PA) Smoking Status: Never smoker [facility] ED Constitutional Constitutional ED: Denies chills or fever(s) ENT ENT ED: Denies sore throat Cardiovascular Cardiovascular: Reports chest pain; Denies palpitations or racing heartbeat Respiratory/Chest Respiratory/Chest: Denies cough or dyspnea Gastrointestinal Gastrointestinal: Denies abdominal pain, diarrhea, nausea or vomiting Genitourinary Genitourinary ED: Denies dysuria Musculoskeletal Musculoskeletal: Reports back pain; Denies myalgias Integumentary Denies rash Neurologic Neurologic: Denies headache(s) Hematologic/Lymphatic Hematologic/Lymphatic: Denies easy bleeding or easy bruising EXAM Physical Exam Const Vital Signs: 11/02/21 00:11 11/02/21 00:56 11/02/21 01:01 Temperature 97.1 F L Temperature Source Temporal Pulse Rate 66 65 67 Respiratory Rate 18 Blood Pressure 159/104 H 163/118 H 132/84 H Blood Pressure Mean 122 Pulse Ox 93 Oxygen Delivery Method Room Air 11/02/21 01:06 11/02/21 02:07 11/02/21 04:30 Temperature Temperature Source Pulse Rate 67 54 L 58 L Respiratory Rate 18 16 Blood Pressure 119/84 H 124/71 H Blood Pressure Mean 88 Pulse Ox 96 98 Oxygen Delivery Method Room Air Room Air Positive well nourished and well developed General Appearance ED: well developed Eyes PERRL and EOMs intact bilaterally Neck supple Chest Wall palpation of chest normal Resp normal respiratory effort and clear to auscultation bilaterally Cardio regular rate and regular rhythm Rate: other Other Details: Radial pulses are plus 2 out of 4 bilaterally are equal and symmetric GI normal to inspection, nondistended, normoactive bowel sounds, non-tender and non-distended GI Narrative: No voluntary guarding or rigidity no pulsatile mass Auscultation: normoactive bowel sounds Palpation: soft Extremity normal to inspection Extremity Narrative: No asymmetric edema no pitting edema negative Homans' sign bilaterally Neuro oriented x3 and CN's II-XII intact bilaterally Sensorium / Orientation: alert Psych mental status grossly normal Skin no rashes or lesions noted MDM MDM MDM Narrative Medical decision making narrative: Patient presented to the ER hypertensive but otherwise with stable vitals. Her risk factor of cardiac disease are low but with the persistent and now worsening symptoms I did elect to perform a cardiac work. 2 view chest x-ray revealed no acute lung pathology. Her initial troponin was 4 and her 2-hour delta only increased to 6 which is not clinically significant. She reported improvement of her pain but states it was still slightly present. Therefore elected to do a CTA and a third troponin. The third troponin decreased to 5 and the CTA revealed no acute findings. On reevaluation patient reports feeling much better and at this time with resolution of pain a level troponin and normal CTA I feel there is no need for further work-up in the hospital and patient can be discharged. Lab Data Attestation: I reviewed the patient's lab results. Labs: Laboratory Results - last 24 hr 11/02/21 11/02/21 11/02/21 00:25 00:25 02:25 WBC 7.8 RBC 4.98 Hgb 14.6 Hct 44.7 MCV 89.8 MCH 29.3 MCHC 32.7 RDW Std Deviation 46.8 H RDW Coeff of Shahid 14.3 Plt Count 242 MPV 11.5 Immature Gran % (Auto) 0.300 Neut % (Auto) 47.4 Lymph % (Auto) 38.4 [place] % (Auto) 9.7 Eos % (Auto) 3.4 Baso % (Auto) 0.8 Absolute Neuts (auto) 3.7 Absolute Lymphs (auto) 2.98 Nucleated RBC % 0 Sodium 141 Potassium 3.7 Chloride 108 H Carbon Dioxide 26.0 Anion Gap 7 BUN 13 Creatinine 0.80 Estim Creat Clear Calc 58.55 Est GFR (MDRD) Af Amer 94 Est GFR (MDRD) Non-Af 78 BUN/Creatinine Ratio 16.1 Glucose 99 Calcium 9.4 Magnesium 2.0 Troponin I High Sens 4 6 11/02/21 04:20 WBC RBC Hgb Hct MCV MCH MCHC RDW Std Deviation RDW Coeff of Shahid Plt Count MPV Immature Gran % (Auto) Neut % (Auto) Lymph % (Auto) [place] % (Auto) Eos % (Auto) Baso % (Auto) Absolute Neuts (auto) Absolute Lymphs (auto) Nucleated RBC % Sodium Potassium Chloride Carbon Dioxide Anion Gap BUN Creatinine Estim Creat Clear Calc Est GFR (MDRD) Af Amer Est GFR (MDRD) Non-Af BUN/Creatinine Ratio Glucose Calcium Magnesium Troponin I High Sens 5 Radiography Diagnostic Testing: Clinical Impression(s) from Imaging Studies Chest X-Ray 11/02/21 00:41 IMPRESSION: 1. Low lung volumes limit the exam. No consolidations. 2. No acute cardiopulmonary abnormality. Electronically Signed: Noel Tyler MD at 1:25 EDT , Chest/Abdomen/Pelvis CTA 11/02/21 03:16 IMPRESSION: 1. No vascular abnormalities. 2. No acute cardiothoracic or abdominopelvic abnormalities. 3. Cholecystectomy. 4. The common bile duct is dilated to 10 mm. This is likely chronic as cholecystectomy. Correlate with laboratory values. Electronically Signed: Noel Tyler MD at 4:20 EDT , Chest x-ray as interpreted by the emergency medicine physician reveals no acute infiltrate pneumothorax or pleural effusion Discharge Plan Triage Chief Complaint: Chest Pain ED Provider: Andes,Efren Dx/Rx/DC Orders Clinical Impression: Nonspecific chest pain, GERD (gastroesophageal reflux disease) Instructions: GERD Dc, ED Chest Pain, Uncertain Cause Prescriptions: No Action NK Primary Care Provider: Tiffany Waite Referrals: Tiffany Waite DO [Primary Care Provider] - Disposition Disposition: Home, Self Care
== END 2021-11-02 05:21 | disposition home or self-care (01) ==
PROVIDERS: Emergency Provider Emergency Medicine; PCP Family Medicine; Visit Provider Emergency Medicine
DX: R07.9 Chest pain, unspecified (principal); K21.9 Gastro-esophageal reflux disease without esophagitis
CPT/HCPCS: 71046; 71275; 74174; 80048; 83735; 84484; 85025; 93005; 96360; 96361; 99283; J7030; Q9967; A4216

== ENCOUNTER → 2022-10-01 | Outpatient (CLI) | payer OTHER, SELFPAY ==
[2022-10-09 10:09] LABS: HPV APTIMA, High Risk Negative (Negative)
== END | disposition home or self-care (01) ==
LOC: LABSPEC 15:56
PROVIDERS: PCP Family Medicine; Visit Provider Nurse Practitioner Women's Health
DX: Z12.4 Encounter for screening for malignant neoplasm of cervix (principal)
CPT/HCPCS: 87624; 88175; G0145

== ENCOUNTER → 2022-10-10 | Outpatient (CLI) | payer OTHER, SELFPAY ==
--- NOTE | 2022-10-10 13:05 | BI_ITS ---
MAMMOGRAPHY - BILATERAL SCREENING REASON FOR EXAM: Female, 57 years old. Routine annual screening examination. PERTINENT HISTORY: Non-contributory. TECHNIQUE: Digital bilateral breast syeda (3D mammographic acquisition) in the CC and MLO projections. 2-D mediolateral oblique (MLO) and craniocaudad (CC) views of both breasts were obtained. CAD: Full Field Digital Mammography with Computer Added Detection was performed. COMPARISON: Comparison is made with prior study December 20, 2019 and December 17, 2018. FINDINGS: Breast Composition: There are scattered areas of fibroglandular density. There are no dominant masses or suspicious calcifications. Stable small benign-appearing bilateral axillary lymph nodes. No other significant abnormalities are identified. There has been no significant change since the prior study. BI/SCRN MAMM (CAD)W/SYEDA BILAT IMPRESSION: Stable bilateral screening mammogram. Yearly follow-up mammogram recommended. (A) ASSESSMENT CATEGORY: BIRADS Category 2: Benign. A letter regarding these results will be sent to the patient by the facility within 30 days. Approximately 10% of breast cancers are not detected by mammography. A normal mammogram should not delay biopsy of a clinically suspicious abnormality. [id number] Electronically Signed: Ernesto Avalos MD at 14:32 EDT ,
== END | disposition home or self-care (01) ==
LOC: OPBI 13:01
PROVIDERS: PCP Family Medicine; Referring Provider Nurse Practitioner Women's Health; Visit Provider Nurse Practitioner Women's Health
DX: Z12.31 Encounter for screening mammogram for malignant neoplasm of breast (principal)
CPT/HCPCS: 77063; 77067

== ENCOUNTER → 2022-10-14 | Outpatient (CLI) | payer OTHER, SELFPAY ==
[2022-10-14 11:20] LABS: Absolute Neutrophil Count 2.6 X10^3/uL (2.0-7.7); Basophil# 0.06 X10^3/uL; Basophil% 1.1 % (0-1); Eosinophil# 0.29 X10^3/uL; Eosinophils% 5.4 % (0-5); Hemoglobin 14.4 g/dL (12.0-15.0); Lymphocyte % 37.2 % (19-41); Mean Corpuscular Hgb 29.3 pg (27.0-32.0); Mean Corpuscular Volume 91.5 fL (81-99); Mean Platelet Vol. 12.1 fl (6.2-12.0); Monocyte# 0.46 X10^3/uL; Monocyte% 8.6 % (0-10); NRBC Flagged by Analyzer 0 % (0-5); Neutrophil # 2.56 X10^3/uL (2.7-7.7); Neutrophil % 47.5 % (47-70); Platelet Count 204 K/mm3 (150-450); RBC Distribution Width CV 14.7 % (11.6-14.6); RBC Distribution Width SD 49.1 fl (35.1-43.9); Red Blood Count 4.92 M/mm3 (4.2-5.4); White Blood Count 5.4 K/mm3 (4.4-11.0)
[2022-10-14 12:02] LABS: AST(SGOT) 24 U/L (15-37); Alanine Aminotransfer ALT/SGPT 27 U/L (13-56); Albumin, Serum 3.6 g/dL (3.2-5.0); Alkaline Phosphatase 71 U/L (45-117); Anion Gap 3 (5-15); BUN 9 mg/dL (7-18); BUN/Creat Ratio 14.7 RATIO (10-20); Calcium,Total 9.5 mg/dL (8.5-10.1); Chloride 109 mmol/L (98-107); Cholesterol 193 mg/dL (200); Creatinine, Serum 0.61 mg/dL (0.55-1.02); EST Glomerular Filtration Rate 107 mL/min (>60); Est Glom Filt Rate - Afr Amer 129 mL/min (>60); Globulin 3.6 g/dL (2.2-4.2); Glucose 88 mg/dL (74-106); High Density Lipoprotein 49 mg/dL; Potassium 3.8 mmol/L (3.5-5.1); Protein, Total 7.2 g/dL (6.4-8.2); Sodium Level 140 mmol/L (136-145); Triglycerides 133 mg/dL; Very Low Density Lipoprotein 27 mg/dL (5-40)
== END | disposition home or self-care (01) ==
LOC: LAB 10:33
PROVIDERS: PCP Family Medicine; Referring Provider Family Medicine; Visit Provider Family Medicine
DX: Z51.81 Encounter for therapeutic drug level monitoring (principal); Z13.220 Encounter for screening for lipoid disorders
CPT/HCPCS: 36415; 80053; 80061; 85025

== ENCOUNTER → 2023-10-22 | Outpatient (CLI) | payer OTHER, SELFPAY ==
--- NOTE | 2023-10-22 11:27 | RAD_ITS ---
STUDY: X-RAY - LEFT ANKLE REASON FOR EXAM: Female, 58 years old. Left ankle pain and bruising following a twisting injury. TECHNIQUE: 3 view(s) of the ankle. COMPARISON: None. FINDINGS: Normal visualized distal tibia and fibula. Normal medial and lateral malleoli. Normal tibiotalar articulation and ankle mortise. Normal visualized talus and calcaneus. The visualized subtalar, talonavicular, calcaneocuboid and tarsal articulations are normal. Diffuse soft tissue swelling worse along the lateral aspect. RAD/Ankle min 3 Views IMPRESSION: Diffuse soft tissue swelling. No fracture seen. Electronically Signed: Ernesto Avalos MD at 15:50 EDT ,
== END | disposition home or self-care (01) ==
LOC: MTRAD 11:25
PROVIDERS: PCP Family Medicine; Referring Provider Family Medicine; Visit Provider Family Medicine
DX: M25.572 Pain in left ankle and joints of left foot (principal)
CPT/HCPCS: 73610

== ENCOUNTER 2024-09-17 16:27 | Emergency (ER) | payer OTHER, BC, SELFPAY ==
[2024-09-17 16:28] VITALS: BP 134/78; PULSE 70; RESP 15; TEMP 36.3; O2SAT 97
[2024-09-17 16:33] VITALS: BMI 40.0
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
--- NOTE | 2024-09-17 16:55 | RAD_ITS ---
PROCEDURE: FOOT MIN 3 VIEWS 09/17/2024 REASON FOR EXAM: INJURY TECHNIQUE: 3 view(s) of the left foot. COMPARISON: 10/22/2023 FINDINGS: No acute fracture or dislocation. Joint spaces are maintained. Moderate dorsal soft tissue swelling. No radiopaque foreign body. RAD/Foot min 3 Views IMPRESSION: No acute fracture or dislocation. Moderate soft tissue swelling. Reading Location: [facility]
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
[2024-09-17] MEDS: Diphth,Pertuss(Acell),Tet Vac 0.5 ML Vial IM (17:19)
[2024-09-17] MEDS: HYDROcodone Bitartrate/Apap 5/325 Tablet PO (17:19)
[2024-09-17 19:43] VITALS: BP 130/70; PULSE 70; RESP 15; TEMP 36.3; O2SAT 97
== END 2024-09-17 19:44 | disposition home or self-care (01) ==
PROVIDERS: Emergency Provider Emergency Medicine; PCP Family Medicine; Visit Provider Emergency Medicine
DX: S97.82XA Crushing injury of left foot, initial encounter (principal); S70.11XA Contusion of right thigh, initial encounter; S70.01XA Contusion of right hip, initial encounter; S50.311A Abrasion of right elbow, initial encounter; S50.312A Abrasion of left elbow, initial encounter; S70.311A Abrasion, right thigh, initial encounter; S80.212A Abrasion, left knee, initial encounter; S80.211A Abrasion, right knee, initial encounter; W23.0XXA Caught, crushed, jammed, or pinched between moving objects, initial encounter; Z23 Encounter for immunization
CPT/HCPCS: 73630; 90715; 99283